=== PATIENT | male | born 1950 | race Caucasian/White ===

== ENCOUNTER 2019-06-24 11:11 | Emergency (ER) | payer OTHER ==
--- OUTSIDE RECORDS SUMMARY | 2019-06-24 12:37 | XMS REPORT | Summary of Care ---
:1950 Author Organization [facility] Address [address] [place] [address] Care Team Providers Name Role Phone Theo Patel MD Primary Care Provider Reason for Visit Reason Comments Results Patient here to discuss lab results. Muscle Spasm Patient states he has muscle tightness in his sleft shoulder and bicep. Encounter Details Date Type Department Care Team Description 05/30/2019 Office Visit [place] [facility] Theo Patel, BMI 33.0-33.9, adult (Primary Dx); Medicine MD Pre-diabetes; [address] [facility] Essential hypertension, benign; [place] [address] [place] [address] Mixed hyperlipidemia; [phone] Muscle cramps Allergies Active Allergy Reactions Severity Noted Date Comments Pollen Respiratory Reaction 12/11/2007 Sulfa Antibiotics Hives 02/11/2015 Tape: Silk Or Adhesive Rash 08/14/2014 documented as of this encounter (statuses as of 05/30/2019) Medications Medication Sig Dispensed Refills Start Date End Date Status hydrocortisone valerate 1 Appl by 15 g 0 07/07/2015 Active (WEST-LEXY) 0.2 % Apply Topical route externally Ointment TWICE DAILY. Apply to psoriasis as directed ketoconazole (NIZORAL) 2 1 Appl by 30 g 2 11/26/2015 Active % Apply externally Topical route CreamIndications: TWICE DAILY. Intertrigo Apply to both axilla rash prn Tadalafil 20 MG Oral Tab Take 1 Tab by 8 Tab 5 11/20/2018 Active mouth NEEDED (sex). hydrocortisone (HYTONE) 1 Appl by 30 g 2 11/30/2018 Active 2.5 % Apply externally Topical route CreamIndications: TWICE DAILY. Prn Intertrigo to dry skin on shoulder atorvastatin (LIPITOR) TAKE 1 TABLET BY 90 Tab 3 01/01/2019 Active 10 MG Oral MOUTH EVERY DAY TabIndications: Lipid disorder nystatin (MYCOSTATIN) Take 5 mL by 100 mL 0 02/21/2019 Active 715907 UNIT/ML mouth FOUR TIMES Mouth/Throat DAILY. SuspensionIndications: Oral aphthous ulcer Dexlansoprazole Take 1 Cap by 90 Cap 3 03/01/2019 Active (DEXILANT) 60 MG Oral mouth DAILY. 1 CAPSULE DELAYED PO Q AM RELEASEIndications: Gastroesophageal reflux disease without esophagitis Losartan Potassium 100 TAKE 1 TABLET BY 90 Tab 3 05/10/2019 Active MG Oral Tab MOUTH EVERY DAY Phentermine HCl 30 MG Take 1 Cap by 30 Cap 5 05/30/2019 Active Oral Cap mouth DAILY. Max Daily Amount: 30 mg. 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 04/25/2008 Erectile dysfunction 12/11/2007 Gastroesophageal reflux disease without esophagitis 11/15/2007 Allergic rhinitis, cause unspecified 11/15/2007 Seborrheic dermatitis, unspecified 11/15/2007 Overview: ECZEMA SHOBHA (obstructive sleep apnea) 11/15/2007 Overview: CPAP documented as of this encounter (statuses as of 05/30/2019) Resolved Problems Problem Noted Date Resolved Date Morbid obesity, unspecified obesity type 11/20/2018 05/30/2019 TIA (transient ischemic attack) 01/04/2014 08/17/2017 Elevated blood sugar 07/01/2009 08/17/2017 Pilonidal cyst 11/15/2007 08/17/2017 Other psoriasis 11/15/2007 12/11/2007 Unspecified essential hypertension 11/18/2005 12/11/2007 Chronic frontal sinusitis 01/08/2005 12/11/2007 Chronic ethmoidal sinusitis 01/08/2005 12/11/2007 documented as of this encounter (statuses as of 05/30/2019) Immunizations Name Administration Dates Next Due H1N1 Injectable Adult 10/15/2009 Influenza (IM) Preservative Free 06/10/2017, 07/15/2014, 07/10/2013, 09/28/2012, 07/06/2011, 07/08/2009 Influenza Vaccine High Dose 06/30/2018, 06/24/2016, 07/15/2015 Influenza Virus Vaccine - Whole 10/10/2005 PNEUMOCOCCAL POLYSACCHARIDE VACCINE 01/13/2015 Pneumococcal Conjugate(13 Valent) 01/28/2016 TDAP Vaccine 07/11/2014 TETANUS & DIPHTHERIA TOXOID (OVER 7 04/30/2004, 02/07/1994 YRS) ZOSTER (ZOSTAVAX) VACCINE 01/10/2012 documented as of this encounter Social History Tobacco Use Types Packs/Day Years Used Date Never Smoker Smokeless Tobacco: Never Used Alcohol Use Drinks/Week oz/Week Comments No 1 Standard drinks or equivalent 0.8 Sex Assigned at Date Recorded Not on file Job Start Date Occupation Industry Not on file Not on file Not on file Travel History Travel Start Travel End No recent travel history available. documented as of this encounter Last Filed Vital Signs Vital Sign Reading Time Taken Comments Blood Pressure 118/78 05/30/2019 7:54 AM EDT Pulse 70 05/30/2019 7:54 AM EDT Temperature - - Respiratory Rate - - Oxygen Saturation - - Inhaled Oxygen Concentration - - Weight 95.7 kg (211 lb) 05/30/2019 7:54 AM EDT Height 167.6 cm (5' 6") 05/30/2019 7:54 AM EDT Body Mass Index 34.06 05/30/2019 7:54 AM EDT documented in this encounter Patient Instructions Patient InstructionsTheo Patel MD - 05/30/2019 8:00 AM EDTMuscle cramps - two options over the counter potassium Pill supplement or magnesium 400 mg over the counter once daily Do shoulder exercise Once daily in evening Trial phentermine 30 mg in am for 3 month this will help with appetite and calorie control Goal weight loss 10 lb 3 months Follow up me 3 months hypertension Please check your blood pressure at home, mall, pharmacy, or grocery store three times per week. Write these numbers down and bring them into your next doctor visit. The goal blood pressure for you is less than : 140/90 documented in this encounter Progress Notes Theo Patel MD - 05/30/2019 8:00 AM EDT PATIENT: Daniele Sanchez : 1950 DATE OF SERVICE: 05/30/2019 CHIEF COMPLAINT: Chief Complaint Patient presents with Results Patient here to discuss lab results. Muscle Spasm Patient states he has muscle tightness in his sleft shoulder and bicep. Subjective HISTORY OF PRESENT ILLNESS: Daniele Sanchez is a 69-y.o. male. HPI Here for follow up labs Lab Results Component Value Date CHOL 175 11/15/2018 TRIG 89 11/15/2018 HDL 37 (L) 11/15/2018 LDL 120 (H) 11/15/2018 LDLHDLRATIO 3.2 11/15/2018 CHOLHDLRATIO 4.7 11/15/2018 Lab Results Component Value Date NA 136 05/22/2019 K 4.1 05/22/2019 CL 102 05/22/2019 CO2 16 (L) 05/22/2019 GLUCOSE 100 (H) 05/22/2019 BUN 16 05/22/2019 CREATININE 1.3 05/22/2019 CALCIUM 9.1 05/22/2019 TP 8.7 (H) 05/22/2019 ALBUMIN 4.7 05/22/2019 AST 31 05/22/2019 ALT 53 05/22/2019 ALK 77 05/22/2019 TBILI 0.9 05/22/2019 EGFR 55 05/22/2019 He cannot lose weight has tried and is doing daily 45 minute exercise Trouble with sweets and appetite control Wt Readings from Last 3 Encounters: 05/30/19 211 lb (95.7 kg) 03/01/19 211 lb 14.4 oz (96.1 kg) 02/23/19 213 lb (96.6 kg) he has night time muscle cramps in upper arms Past Medical History: Diagnosis Date Actinic keratosis of multiple sites of head and neck Adenocarcinoma in tubular adenoma 04/25/2008 Allergic rhinitis, cause unspecified 11/15/2007 BMI 33.0-33.9,adult 07/11/2013 Eczema Elevated blood sugar 07/01/2009 Elevated prostate specific antigen (PSA) 01/10/2012 Erectile dysfunction 12/11/2007 Esophageal reflux 11/15/2007 Essential hypertension, benign 10/15/2009 GERD (gastroesophageal reflux disease) Hypertension HYPERTENSION NOS 11/18/2005 Kidney stone Lipid disorder 04/25/2008 SHOBHA (obstructive sleep apnea) 11/15/2007 Other psoriasis 11/15/2007 Personal history of urinary calculi 11/15/2007 Pilonidal cyst 11/15/2007 Pulmonary disease Renal insufficiency 09/22/2009 Seborrheic dermatitis, unspecified 11/15/2007 ECZEMA Skin abnormalities 12/15 Severe Atypia (Dysplastic Nevus Ureteral calculi 09/22/2009 First in 70s then none since partial parathyroidectomy Family History Problem Relation Age of Onset Heart Father AMI IN HIS 40'S ; CABG Skin Cancer Father High Cholesterol Father Hypertension Mother COPD Mother Hypertension Sister Heart Unknown CAD Asthma Other Allergies Other Current Outpatient Medications Medication Sig atorvastatin (LIPITOR) 10 MG Oral Tab TAKE 1 TABLET BY MOUTH EVERY DAY Dexlansoprazole (DEXILANT) 60 MG Oral CAPSULE DELAYED RELEASE Take 1 Cap by mouth DAILY. 1 POQ AM hydrocortisone (HYTONE) 2.5 % Apply externally Cream 1 Appl by Topical route TWICE DAILY. Prnto dry skin on shoulder hydrocortisone valerate (WEST-LEXY) 0.2 % Apply externally Ointment 1 Appl by Topical route TWICE DAILY. Apply to psoriasis as directed ketoconazole (NIZORAL) 2 % Apply externally Cream 1 Appl by Topical route TWICE DAILY. Apply to both axilla rash prn Losartan Potassium 100 MG Oral Tab TAKE 1 TABLET BY MOUTH EVERY DAY nystatin (MYCOSTATIN) 919654 UNIT/ML Mouth/Throat Suspension Take 5 mL by mouth FOUR TIMES DAILY. Phentermine HCl 30 MG Oral Cap Take 1 Cap by mouth DAILY. Max Daily Amount: 30 mg. Tadalafil 20 MG Oral Tab Take 1 Tab by mouth NEEDED (sex). No current facility-administered medications for this visit. Allergies Allergen Reactions Pollen Respiratory Reaction Sulfa Antibiotics Hives Tape: Silk Or Adhesive Rash Social History Socioeconomic History Marital status: Spouse name: Not on file Number of children: Not on file Years of education: Not on file Highest education level: Not on file Occupational History Not on file Social Needs Financial resource strain: Not on file Food insecurity: Worry: Not on file Inability: Not on file Transportation needs: Medical: Not on file Non-medical: Not on file Tobacco Use Smoking status: Never Smoker Smokeless tobacco: Never Used Substance and Sexual Activity Alcohol use: No Alcohol/week: 0.8 standard drinks Types: 1 Standard drinks or equivalent per week Drug use: No Sexual activity: Yes Partners: Female Lifestyle Physical activity: Days per week: Not on file Minutes per session: Not on file Stress: Not on file Relationships Social connections: Talks on phone: Not on file Gets together: Not on file Attends rastafari service: Not on file Active member of club or organization: Not on file Attends meetings of clubs or organizations: Not on file Relationship status: Not on file Intimate partner violence: Fear of current or ex partner: Not on file Emotionally abused: Not on file Physically abused: Not on file Forced sexual activity: Not on file Other Topics Concern Back Care Not Asked Bike Helmet Not Asked Blood Transfusions Not Asked Caffeine Concern No Exercise Yes Comment: gym work out 60 mins 4 times weekly, Hobby Hazards Not Asked International Travel Not Asked Service Not Asked Occupational Exposure Not Asked Seat Belt Not Asked Self-Exams Not Asked Sleep Concern Yes Comment: sleep apnea Special Diet No Stress Concern Not Asked Weight Concern Yes Social History Narrative Teacher-retired, 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 Physical Exam normal muscle tone and strength throughout S1 and S2 normal, no murmurs, clicks, gallops or rubs. Regular rate and rhythm. Chest is clear; no wheezes or rales. No edema or JVD. ASSESSMENT / IMPRESSION: ICD-9-CM ICD-10-CM 1. BMI 33.0-33.9,adult trial of Anapsispal anabell and trial phenternmine 30 mg 3 months .The risks and benefits of phentermi treatment were discussed with patient, who understands and is wishes to proceed with treatment. V85.33 Z68.33 2. Pre-diabetes diet exercise And weight loss 790.29 R73.03 3. Essential hypertension, benign at goal monitor continue current medications 401.1 I10 4. Mixed hyperlipidemia 272.2 E78.2 5. Muscle cramps see below 729.82 R25.2 Patient Instructions Muscle cramps- two options over the counter potassium Pill supplement or magnesium 400 mg over the counter once daily Do shoulder exercise Once daily in evening Trial phentermine 30 mg in am for 3 month this will help with appetite and calorie control Goal weight loss 10 lb 3 months Follow up me 3 months hypertension Please check your blood pressure at home, mall, pharmacy, or grocery store three times per week. Write these numbers down and bring them into your next doctor visit. The goal blood pressure for you is less than : 140/90 Theo Patel MD 05/30/2019 15:52 documented in this encounter Plan of Treatment Date Type Specialty Care Team Description 07/02/2019 GI Procedure Gastroenterology Rahul Pascal MD [facility] [address] [place] [address] 08/15/2019 Office Visit Dermatology Gibran Xavier DO [address] [place] [address] 08/30/2019 Office Visit Internal Medicine Theo Patel MD [address] [place] [address] [phone] 08/30/2019 Office Visit Pulmonary Jose L Rm MD [address] [place] [address] [phone] 02/29/2020 Office Visit Gastroenterology Krystal Polk, [address] [place] [address] Health Maintenance Due Date Last Done Comments MEDICARE ANNUAL WELLNESS 1950 VISIT ZOSTER IMMUNIZATION SERIES 03/06/2012 01/10/2012 (2 of 3) INFLUENZA VACCINE (#1) 2019 06/30/2018, 06/30/2018, 06/10/2017, Additional history exists COLONOSCOPY SCREENING 06/21/2019 06/21/2014, 06/17/2010, 06/17/2010, Additional history exists FALL RISK ASSESSMENT 11/20/2019 11/20/2018, 11/20/2018 LIPID DISORDER SCREENING 2020 01/01/2019, 11/15/2018, 04/04/2018, Additional history exists DEPRESSION SCREENING 02/24/2020 02/23/2019, 02/23/2019 DIABETES SCREENING 05/22/2020 05/22/2019, 11/15/2018, 04/04/2018, Additional history exists PNEUMOCOCCAL 65+YRS Completed 01/28/2016, 01/13/2015 HPV IMMUNIZATION SERIES Aged Out No longer eligible based on patient's age to complete this topic MENINGOCOCCAL VACCINE IMM Aged Out No longer eligible based on patient's age to complete this topic documented as of this encounter Goals Goal Patient Goal Associated Recent Patient-Stated? Author Type Problems Progress Blood Pressure Blood Pressure 118/78 No Carol, < 150/90 (05/30/2019 DO Deny 7:54 AM EDT) Note: This is an individualized treatment (blood pressure) goal for Daniele Sanchez: Displayed above (on the left) is your goal for blood pressure control. Your most recent blood pressure is also shown above, on the right. You should try to achieve blood pressures that are lower than your goal listed above (on the left). Weight loss vs. 18 mo Lifestyle 2 (05/30/2019 7:54 AM No Deny Medina DO max (lbs) >= 10 EDT) Note: This is an individualized lifestyle goal for Daniele Sanchez: Your body mass index (BMI) is more than 30. You should lose weight. A reasonable starting goal is to lose 10 pounds. Displayed above is how many pounds you have lost thus far towards your 10 pound weight loss goal. Take all prescribed medications as Self-management No Deny Medina DO directed Note: This is an individualized self-management goal for Daniele Sanchez: Please take all prescribed medications as directed. 1. Do not skip doses. If you cannot afford your medications, talk with your doctor. 2. Use a pill reminder system such as a pill box if needed. Your pharmacist can help you with this. 3. Contact your Pharmacy 5 days before your medication runs out. If you cannot take your medications for any reasons, talk with your doctor. 4. Please bring all of your medication bottles and inhalers (or a list of all your medications/inhalers) with you to every visit. Potential barriers to meeting all of your care plan goals will continue to be addressed on an ongoing basis. documented as of this encounter Results Not on filedocumented in this encounter Visit Diagnoses Diagnosis BMI 33.0-33.9,adult - Primary Body Mass Index 33.0-33.9, adult Pre-diabetes Other abnormal glucose Essential hypertension, benign Mixed hyperlipidemia Muscle cramps Cramp of limb documented in this encounter Insurance Payer Benefit Plan / Subscriber ID Effective Dates Phone Address Type Group MVP GOLD MEDICARE MVP GOLD MEDICARE xxxxxxxxxxx Effective for all [facility] ADVANT[facility] ADVANTAGE dates (Home) [place], [place] [phone] (Work) documented as of this encounter
[2019-06-24 12:45] VITALS: BP 161/86
--- NOTE | 2019-06-24 13:03 | UC ---
Dental HPI - HPI Summary HPI Summary: started having lower L molar pain 2 days ago. last agus got much worse, took Tylenol w/o relief. pain seems to come and go, cannot associate any certain precipitant. has had crown pout on tooth 1 year ago - History of Current Complaint Chief Complaint: UCDentalProblem Stated Complaint: DENTAL PAIN Time Seen by Provider: 06/24/19 12:49 Hx Obtained From: Patient Onset/Duration: Sudden Onset Severity: Moderate - but can be worse at times Pain Intensity: 5 Aggravating Factor(s): Chewing Alleviating Factor(s): Nothing Related History: Previous Dental Care on Same Tooth - Allergies/Home Medications Allergies/Adverse Reactions: Allergies Allergy/AdvReac Type Severity Reaction Status Date / Time Sulfa (Sulfonamide Allergy Hives Verified 06/24/19 12:45 Antibiotics) Home Medications: Home Medications Acetaminophen [Tylenol] 1,000 mg PO ONCE PRN 06/24/19 [History Confirmed ] Atorvastatin* [Lipitor 10 MG*] 10 mg PO DAILY 06/24/19 [History Confirmed ] Dexlansoprazole [Dexilant] 60 mg PO DAILY 06/24/19 [History Confirmed 06/24/19] Losartan TAB* [Cozaar TAB*] 25 mg PO DAILY 06/24/19 [History Confirmed 06/24/19] Naproxen [Naproxen 500 mg tab] 1 tab PO ONCE PRN 06/24/19 [History Confirmed ] Tadalafil [Cialis] 2.5 mg PO PRN 06/24/19 [History] PMH/Surg Hx/FS Hx/Imm Hx Previously Healthy: Yes Endocrine History: Dyslipidemia Cardiovascular History: Hypertension GI/ History: Gastroesophageal Reflux - Surgical History Surgical History: Yes Surgery Procedure, Year, and Place: partial parathyroidectomy - Family History Known Family History: Positive: Hypertension - Social History Occupation: Retired Lives: With Family Alcohol Use: Rare Substance Use Type: None Smoking Status (MU): Never Smoked Tobacco Review of Systems All Other Systems Reviewed And Are Negative: Yes Constitutional: Positive: Negative. Negative: Fever, Chills ENT: Positive: Dental Pain. Negative: Sore Throat, Ear Ache, Sinus Congestion, Sinus Pain/Tenderness Respiratory: Positive: Negative Cardiovascular: Positive: Negative Neurological: Positive: Negative Is Patient Immunocompromised?: No Physical Exam Triage Information Reviewed: Yes Appearance: Well-Appearing, No Pain Distress, Well-Nourished Vital Signs: Initial Vital Signs Temp 98.2 F 06/24/19 12:40 Pulse 80 06/24/19 12:40 Resp 16 06/24/19 12:40 BP 161/86 06/24/19 12:40 Pulse Ox 100 06/24/19 12:40 Vital Signs Reviewed: Yes ENT: Positive: Pharynx normal, Dental tenderness - gumline L lower molars. Negative: Nasal congestion Dental: Positive: Other: - multiple crowns. Negative: Abscess @, Cervical Lymphadenopathy Neck exam: Normal Respiratory Exam: Normal Cardiovascular Exam: Normal Neurological Exam: Normal Psychological Exam: Normal Skin Exam: Normal Skin: Negative: Rashes Dental Complaint Course/Dx - Differential Dx/Diagnosis Differential Diagnosis/Dx: Dental Abscess, Fractured Tooth, TMJ Syndrome Provider Diagnosis: Dental abscess Discharge ED - Sign-Out/Discharge Documenting (check all that apply): Patient Departure All imaging exams completed and their final reports reviewed: No Studies - Discharge Plan Condition: Stable Disposition: HOME Prescriptions: Clindamycin HCl 300 mg PO QID #28 capsule Ibuprofen TAB* [Motrin TAB* 800 MG] 800 mg PO Q6H #30 tab Patient Education Materials: Dental Abscess (ED) Referrals: Theo Patel MD [Primary Care Provider] - Additional Instructions: start antibiotic and take as prescribed use ibuprofen as prescribed for pain make sure to follow-up with your dentist as soon as possible - Billing Disposition and Condition Condition: STABLE Disposition: Home
== END 2019-06-24 13:12 | disposition home or self-care (01) ==
LOC: UCEAST 11:11
DX: K04.7 Periapical abscess without sinus (principal); E78.5 Hyperlipidemia, unspecified; I10 Essential (primary) hypertension; K21.9 Gastro-esophageal reflux disease without esophagitis; Z88.2 Allergy status to sulfonamides
CPT/HCPCS: 99212; G0463